=== PATIENT | female | born 1960 | race Two or more races ===

== ENCOUNTER 2025-02-11 09:32 | Inpatient (IN) | payer BC ==
[2025-02-11 10:10] LABS: BASOPHILS ABSOLUTE AUTO 0.12 K/uL (0.00-0.10); BASOPHILS PERCENT AUTO 1.1 % (0.1-1.3); EOSINOPHILS ABSOLUTE AUTO 0.86 K/uL (0.00-0.40); EOSINOPHILS PERCENT AUTO 8.2 % (0.0-5.4); IMMATURE GRAN ABSOLUTE AUTO 0.04 K/uL (0.00-0.23); IMMATURE GRAN PERCENT AUTO 0.4 % (0.0-0.7); LYMPHOCYTES ABSOLUTE AUTO 1.07 K/uL (0.8-3.3); LYMPHOCYTES PERCENT AUTO 10.2 % (11.4-47.7); MONOCYTES ABSOLUTE AUTO 0.65 K/uL (0.20-0.90); MONOCYTES PERCENT AUTO 6.2 % (3.3-12.6); NEUTROPHILS ABSOLUTE AUTO 7.70 K/uL (1.0-7.6); NEUTROPHILS PERCENT AUTO 73.9 % (40.0-78.1); PLATELET COUNT,PLT 170 K/uL (130-375); RED BLOOD CELL COUNT 5.04 M/uL (3.77-5.24); WHITE BLOOD CELL COUNT,WBC 10.4 K/uL (3.2-11.0)
[2025-02-11 10:26] LABS: INR 1.0
[2025-02-11] MEDS: Furosemide 40 MG/4 ML VIAL IVPUSH ONE (10:29)
[2025-02-11] MEDS: Nitroglycerin 2% Oint 1 GM UD Packet TOP ONE (10:29)
[2025-02-11 10:39] LABS: A/G RATIO 0.6 (1.2-2.2); ALANINE AMINOTRANSFERASE,ALT 22 U/L (12-78); ASPARTATE AMNIOTRANSFERASE,AST 22 U/L (15-37); BILIRUBIN TOTAL 0.5 mg/dL (0.2-1.0); BLOOD UREA NITROGEN,BUN 22 mg/dL (7-18); CARBON DIOXIDE,CO2 31 mmol/L (21-32); CHLORIDE,CL 105 mmol/L (100-108); CREATININE 1.4 mg/dL (0.6-1.0); EST CRCL DRUG DOSING (CG) 36.05 mL/min; ESTIMATED GFR 42 mL/min (>60); GLUCOSE RANDOM 146 mg/dL (74-106); POTASSIUM,K 4.3 mmol/L (3.6-5.2); PRO B-TYPE NATRIUR PEPT,BNPPRO 2130 pg/mL (5-125); PROTEIN TOTAL,TP 7.3 g/dL (6.4-8.2); SODIUM,NA 142 mmol/L (140-148); TROPONIN I HIGH SENSITIVITY 19.2 pg/mL (<=60.3)
[2025-02-11 10:55] LABS: APPEARANCE,URINE CLEAR (CLEAR); GLUCOSE,URINE 100 mg/dL (NEGATIVE); OCCULT BLOOD,URINE MODERATE (NEGATIVE)
[2025-02-11 11:05] LABS: EPITHELIAL CELLS,URINE MANY
[2025-02-11] MEDS: Lidocaine/Epineph/Tetracaine 3 ML Syringe TOP ONE (13:12)
[2025-02-11] MEDS ORDERED: Sennosides/Docusate Sodium 50-8.6 MG Tab PO PRN (17:35)
[2025-02-11] MEDS ORDERED: Ondansetron 4 MG Tab.DIS PO PRN (17:35)
[2025-02-11] MEDS ORDERED: Magnesium Hydroxide 400 MG/5 ML Susp 30 ML Cup PO PRN (17:35)
[2025-02-11] MEDS ORDERED: Ondansetron 4 MG/2 ML SDV IV PRN (17:35)
[2025-02-12] MEDS: Furosemide 40 MG/4 ML VIAL IVPUSH ONE ×2 (05:33→14:39)
[2025-02-12 05:59] LABS: BLOOD UREA NITROGEN,BUN 26.0 mg/dL (7-18); CARBON DIOXIDE,CO2 36.0 mmol/L (21-32); CHLORIDE,CL 104.0 mmol/L (100-108); CREATININE 1.6 mg/dL (0.6-1.0); EST CRCL DRUG DOSING (CG) 29.0 mL/min; ESTIMATED GFR 36.0 mL/min (>60); GLUCOSE RANDOM 105.0 mg/dL (74-106); POTASSIUM,K 4.2 mmol/L (3.6-5.2); SODIUM,NA 142.0 mmol/L (140-148)
[2025-02-12] MEDS: Furosemide 40 MG/4 ML VIAL ONE (14:30)
[2025-02-13] MEDS: Furosemide 20 MG/2 ML VIAL IVPUSH ONE (05:52)
[2025-02-13 06:02] LABS: BLOOD UREA NITROGEN,BUN 33.0 mg/dL (7-18); CARBON DIOXIDE,CO2 35.0 mmol/L (21-32); CHLORIDE,CL 104.0 mmol/L (100-108); CREATININE 2.0 mg/dL (0.6-1.0); EST CRCL DRUG DOSING (CG) 23.2 mL/min; ESTIMATED GFR 27.0 mL/min (>60); GLUCOSE RANDOM 98.0 mg/dL (74-106); POTASSIUM,K 3.7 mmol/L (3.6-5.2); SODIUM,NA 143.0 mmol/L (140-148)
== END 2025-02-13 11:45 | disposition home or self-care (01) | DRG 194 ==
LOC: JP.ED 09:32 → JP.MS 16:13
PROVIDERS: ADMIT Internal Medicine; ATTEND Internal Medicine
PROC: 0W993ZZ Drainage of Right Pleural Cavity, Percutaneous Approach (ICD-10-PCS; principal; 2025-02-11)
DX: I11.0 Hypertensive heart disease with heart failure (principal); J90 Pleural effusion, not elsewhere classified; J45.20 Mild intermittent asthma, uncomplicated; I50.9 Heart failure, unspecified; Z79.899 Other long term (current) drug therapy; Z90.49 Acquired absence of other specified parts of digestive tract; Z87.891 Personal history of nicotine dependence
CPT/HCPCS: 32555; 36415; 71045; 71045-26; 80048; 80053; 81001; 83036; 83880; 84484; 85025; 85610; 93005; 93010; 96374; 99222; 99232; 99238; 99285-25; A9270-GY; J1938